=== PATIENT | male | born 1980 | race Caucasian/White ===

== ENCOUNTER 2025-01-07 12:54 | Emergency (ER) | payer BC, SELFPAY ==
[2025-01-07 12:55] VITALS: BP 139/86
--- NOTE | 2025-01-07 14:11 | ED.GENMED ---
History of Present Illness
General
Chief Complaint: Musculo-Skeletal Complaint
Source: patient
Exam Limitations: none
Time Seen by Provider: 01/07/25 13:36
Nursing documentation reviewed up to this point in time: agreed with
History of Present Illness
History of Present Illness:
see MDM
Past History
Past History
ED Past Medical History: None
ED Past Surgical History: None
Social History
Tobacco: Non-smoker
Review of Systems
Review of Systems
Allergies reviewed?: Yes
All Other Systems: Not applicable
Phy Exam
Physical Exam
Physical Exam:
GENERAL: Alert , in no apparent distress, comfortable at rest
HEAD: NCAT
CV: 2+ DP PULSES B/L
NEUROLOGICAL: Alert and oriented, no focal neuro deficits, , 5/5 strength, sensation intact, ambulation slight limp right leg
SKIN: Warm and dry, some moderate swelling to the left foot, faint ecchymosis, no warmth or coolness, normal temperature
MUSCULOSKELETAL: Moderate left foot dorsal swelling with tenderness at the base of the fifth metatarsal, normal pulse, ankle nontender, full range of motion, can wiggle toes
PSYCH: Normal and appropriate interaction.
Course
Orders/Labs/Results
Orders:
Orders
01/07/25 12:58
Foot, Left 3 View [CR Foot - Left Min 3 Views] Urgent
Comment:
Reason For Exam: injury
Vital Signs
Initial and Last Documented VS:
Initial Vital Signs
Temp Pulse Resp BP Pulse Ox
37.1 C 76 16 139/86 98
01/07/25 12:55 01/07/25 12:55 01/07/25 12:55 01/07/25 12:55 01/07/25 12:55
Last Documented Vital Signs
Temp Pulse Resp BP Pulse Ox
37.1 C 76 16 139/86 98
01/07/25 12:55 01/07/25 12:55 01/07/25 12:55 01/07/25 12:55 01/07/25 14:13
MDM/Problems Addressed
Differential Diagnosis Includes:
see MDM
MDM/Problems Addressed:
Note:
CHIEF COMPLAINT(S)
Foot pain following a fall from a ladder.
HISTORY OF PRESENT ILLNESS
The patient is a 44-year-old male who presents with foot pain following a fall from a ladde approximately 2 feet r the previous day. He reports twisting his foot during the fall and experiencing significant pain in the affected area on the left
lateral fifth metatarsal region. The patient mentioned being able to bear weight on the foot but stated that flexion exacerbates the pain.
Patient has not taken anything for pain. He is not having any numbness tingling or weakness, foot drop, color change other than some mild bruising. He says he is worried about compartment syndrome because he has a history selling orthopedic
equipment. He is not having any ankle pain or swelling
PROBLEM LIST
Acute:
- Avulsion fracture at the base of the metatarsal.
- Pain and swelling in the affected foot.
PLAN
- Conservative management with ice, elevation, and immobilization of the foot.
- Application of a long protective boot for stabilization.
- Use of crutches advised to reduce weight-bearing as needed.
- Instructions provided to monitor for signs of complications such as color change, increased pain, or foot drop.
- Orthopedic follow-up recommended to ensure appropriate healing of the fracture.
DIFFERENTIAL DIAGNOSIS
The Differential Diagnosis includes, in no particular order and is not limited to:
1. Avulsion fracture
2. Metatarsal fracture
3. Ligament sprain or tear
4. Soft tissue contusion
5. Stress fracture
6. Compartment syndrome
7. Tendinopathy
8. Ankle sprain
9. Bone contusion
10. Plantar fasciitis
44-year-old male with left lateral foot pain and swelling after rolling it when he fell to feet from a ladder yesterday. He is able to weight-bear with some pain. He has tenderness to the left fifth metatarsal at the base with some bruising. He
has a great pulse. He has sensation. He has no ankle tenderness
He is able to wiggle his toes
Calf was normal
X-ray independently reviewed by me, has a pseudo-Anders avulsion fracture of the base of the left fifth metatarsal. Will place patient in a boot and give crutches, patient is already been seen by Dr. Hilario previously can call for follow-up
*Pulse Oximetry
SaO2: 98
Oxygen Mode of Delivery: Room air
Patient hypoxic: no (98)
*Critical Care Note
Total Time (30-74mins, 75-104mins- exclusive of procedures): Not Applicable
ED Attending Note
-
Portions of this chart may have been created with voice recognition software.� Occasional wrong word or��sound alike� substitutions may have occurred due to the inherent limitations of voice recognition software.
Discharge Plan
Departure
Patient Disposition: Home (Routine Discharge)
Date of Disposition: 01/07/25
Time of Disposition: 14:17
Patient with high blood pressure during this ER visit?: No
Covid-19: Not Applicable
Discharge Problem:
Closed fracture of fifth metatarsal bone
Instructions: Foot Fracture ED
Prescriptions:
No Action
escitalopram oxalate 10 MG tablet
10 mg PO QPM
Referrals:
Shane Hilario DPM [Active, Podiatry] - Follow up in 2-3 days
UNKNOWN - PT DOES,NOT KNOW [Family Provider]
Activity Restrictions/Additional Instructions:
Use the boot when you are walking, you can also use crutches to help avoid putting full pressure on your left foot to allow it to heal. Ice and elevate, use ibuprofen every 8 hours. Follow-up with Dr. Hilario. Return for any concerns
Interventions
Interventions:
*Risk Screen - Suicide Last Done: 01/07/25 12:55
*General Assessment Last Done: 01/07/25 14:54
*Neglect/Abuse Screening Last Done: 01/07/25 12:55
*ED- Fall Risk Assessment Last Done: 01/07/25 14:54
*ED COVID-19 Vaccine History Last Done: 01/07/25 14:54
*ED Influenza Vaccine History Last Done: 01/07/25 14:54
*Nursing Disposition Last Done: 01/07/25 14:54
ED-Musculoskeletal Assessment Last Done: 01/07/25 13:28
Discharge Date and Time
Discharge Date/Time: 01/07/25 14:54
Print Language: ARABIC
== END 2025-01-07 14:54 | disposition home or self-care (01) ==
LOC: EMR 12:54
PROVIDERS: EMERGENCY PHYSICIAN Emergency Medicine
DX: S92.352A Displaced fracture of fifth metatarsal bone, left foot, initial encounter for closed fracture (principal); W11.XXXA Fall on and from ladder, initial encounter
CPT/HCPCS: 99283; 73630